=== PATIENT | male | born 1995 | race African-American/Black ===

== ENCOUNTER 2020-01-20 12:34 | Emergency (ER) | payer SELFPAY ==
[2020-01-20 12:44] VITALS: BP 147/87; PULSE 82; RESP 16; TEMP 37.1; O2SAT 100
--- NOTE | 2020-01-20 13:01 | ED.GENADULT ---
HPI - General Adult General Chief complaint: Recheck/Abnormal Lab/Rx Stated complaint: Blood Pressure Medicine Refill Time Seen by Provider: 01/20/20 12:54 Source: patient and RN notes reviewed Mode of arrival: ambulatory Limitations: no limitations History of Present Illness HPI narrative: Patient presents today requesting a refill on his amlodipine. He has been out for 10 to 12 days. He has a telehealth visit scheduled with his PCP on 01/28/2020. They will not refill his medication until that time. Denies any current symptoms such as headache, dizziness, lightheadedness, blurred vision, nausea or vomiting, or any additional sick symptoms. MD complaint: Medication refill Related Data Home Medications Medication Instructions Recorded Confirmed amlodipine 01/20/20 Allergies Allergy/AdvReac Type Severity Reaction Status Date / Time No Known Allergies Allergy Verified 01/20/20 13:04 Review of Systems Review of Systems: Narrative: CONSTITUTIONAL: Denies body aches, fever, chills, or sweats. EYES: Denies visual changes, redness, or discharge. ENT: Denies rhinorrhea, congestion, sore throat, or otalgia. CARDIOVASCULAR: Denies chest pain, palpitations, or edema. RESPIRATORY: Denies cough or dyspnea. GASTROINTESTINAL: Denies abdominal pain, nausea, vomiting, or diarrhea. GENITOURINARY: Denies dysuria or hematuria. SKIN: Denies rash, itching, or wounds. MUSCULOSKELETAL: Denies back pain, joint pain, or myalgia. NEUROLOGIC: Denies headache, numbness, tingling, or weakness. PSYCH: Denies depression or anxiety. [facility] Past Medical History Medical History (Updated 01/20/20 @ 13:04 by Patricia Castillo, [facility], ) Hypertension Comments At time of signature, I have reviewed and agree with nursing past medical, surgical, social and family history unless otherwise noted. Please see nursing chart for further information. There is no relevant family history pertinent to the presenting complaint Exam Narrative: Exam Narrative: GENERAL: Well-appearing, well-nourished, and in no acute distress. HEAD: Normocephalic, atraumatic. EYES: EOMI. No redness or drainage. Conjunctivae normal. ENT: Mucous membranes pink and moist. NECK: Normal AROM. CHEST: No respiratory distress. EXTREMITIES: Normal range of motion. No edema. SKIN: Warm, dry, no rash. Capillary refill normal. Normal skin turgor. NEURO: No focal deficits. Alert and oriented x3. Gait steady. PSYCH: Normal affect. No signs of depression or anxiety. Course Vital Signs Vital signs: Vital Signs Temperature 98.8 F 01/20/20 12:44 Pulse Rate 82 01/20/20 12:44 Respiratory Rate 16 01/20/20 12:44 Blood Pressure 147/87 H 01/20/20 12:44 Pulse Oximetry 100 01/20/20 12:44 Temperature 98.8 F 01/20/20 12:44 Pulse Rate 82 01/20/20 12:44 Respiratory Rate 16 01/20/20 12:44 Blood Pressure 147/87 H 01/20/20 12:44 Pulse Oximetry 100 01/20/20 12:44 Reviewed. Pt has been instructed to follow up with his PCP regarding his elevated blood pressure today. Medical Decision Making Differential Diagnosis Differential Diagnosis: Hypertension, hypertensive urgency, hypertensive emergency, medication refill Vital Signs Vital Signs: Vital Signs Temperature 98.8 F 01/20/20 12:44 Pulse Rate 82 01/20/20 12:44 Respiratory Rate 16 01/20/20 12:44 Blood Pressure 147/87 H 01/20/20 12:44 Pulse Oximetry 100 01/20/20 12:44 Temperature 98.8 F 01/20/20 12:44 Pulse Rate 82 01/20/20 12:44 Respiratory Rate 16 01/20/20 12:44 Blood Pressure 147/87 H 01/20/20 12:44 Pulse Oximetry 100 01/20/20 12:44 Critical Care Time Critical Care Time Critical Care Time: No Discharge Plan Discharge Clinical Impression: Encounter for medication refill Patient Disposition: Home, Self-Care Condition: Stable Instructions: Hypertension (ED) Additional Instructions: You have been given a 2-week refill of your amlodipine. P
== END 2020-01-20 13:06 | disposition home or self-care (01) ==
PROVIDERS: Emergency Provider Nurse Practitioner
DX: Z76.0 Encounter for issue of repeat prescription (principal)
CPT/HCPCS: 99201; 99203; G0463

== ENCOUNTER 2020-03-31 09:56 | Emergency (ER) | payer SELFPAY ==
[2020-03-31 10:03] VITALS: BP 143/90; PULSE 98; RESP 18; TEMP 36.5; O2SAT 100
--- NOTE | 2020-03-31 10:36 | ED.GENADULT ---
HPI - General Adult General Chief complaint: Eye Problems <Ian Smith PA-C - Last Filed: 03/31/20 10:44> Stated complaint: Eye Redness <RENETTA Garber Last Filed: 03/31/20 10:44> Time Seen by Provider: 03/31/20 10:06 <RENETTA Garber Last Filed: 03/31/20 10:44> Source: patient <RENETTA Garber Last Filed: 03/31/20 10:44> Mode of arrival: ambulatory <RENETTA Garber Last Filed: 03/31/20 10:44> Limitations: no limitations <RENETTA Garber Last Filed: 03/31/20 10:44> History of Present Illness HPI narrative: Patient reports her redness, drainage and itching to bilateral eyes. Patient states that it started in his right eye approximately 4 days ago the after 2 days went to his left eye as well. Patient denies any trauma to his eyes. He denies any changes in his vision or any pain. Patient states that he does not wear contact lenses. Patient states that when he sleeps and wakes up he wakes up and his eyes are crusted shut with thick yellow discharge and he has to use a warm washcloth to soften it and remove it to get it open. Patient denies any other symptoms or known sick contacts. Patient denies being ill recently <Ian Smith PA-C - Last Filed: 03/31/20 10:44> Related Data Allergies/adverse reactions: Allergies Allergy/AdvReac Type Severity Reaction Status Date / Time No Known Allergies Allergy Verified 03/31/20 10:07 <Ian Smith PA-C - Last Filed: 03/31/20 10:44> Review of Systems Review of Systems: Narrative: CONSTITUTIONAL: Denies fever, chills, or sweats. EYES: Reports redness and crusting with yellow discharge denies visual changes or ocular pain ENT: Denies rhinorrhea, congestion, sore throat, or otalgia. CARDIOVASCULAR: Denies chest pain, palpitations, or edema. RESPIRATORY: Denies cough or dyspnea. GASTROINTESTINAL: Denies abdominal pain, nausea, vomiting, or diarrhea. GENITOURINARY: Denies dysuria or hematuria. SKIN: Denies rash or itching. MUSCULOSKELETAL: Denies back pain, joint pain, or myalgia. NEUROLOGIC: Denies headache, numbness, dizziness, or weakness. PSYCHIATRIC: Denies anxiety or depression. <Ian Smith PA-C - Last Filed: 03/31/20 10:44> [facility] Past Medical History Medical History: Medical History (Updated 03/31/20 @ 10:40 by Ian Smith PA-C) Hypertension <Ian Smith PA-C - Last Filed: 03/31/20 10:44> Social History Social History: Social History Gender identity (if verbalized by the patient): Male <Ian Smith PA-C - Last Filed: 03/31/20 10:44> Exam Narrative: Exam Narrative: GENERAL: Well-appearing, well-nourished, and in no acute distress. HEAD: Normocephalic, atraumatic. EYES: Conjunctive are erythematous with yellow crust noted to patient's eyelashes. There is no subconjunctival hemorrhaging or other signs of trauma. Vision is intact. ENT: Nares clear, no rhinorrhea or epistaxis. Mucous membranes moist. Oropharynx without tonsillar hypertrophy exudate or other lesions. Bilateral TMs pearly holly nonbulging NECK: Supple. No adenopathy or masses. No carotid bruits or JVD CHEST: Clear to auscultation. No respiratory distress. No wheezes rales or rhonchi HEART: Regular rate and rhythm. No murmur heard. Normal peripheral pulses. ABDOMEN: Soft, nontender, nondistended, normal active bowel sounds. EXTREMITIES: Normal range of motion. No edema. SKIN: Warm, dry, no rash. NEURO: No focal deficits. Alert and oriented x3. PSYCH: Normal mood and affect. <Ian Smith PA-C - Last Filed: 03/31/20 10:44> Course Vital Signs Vital signs: Vital Signs Temperature 97.7 F 03/31/20 10:03 Pulse Rate 98 03/31/20 10:03 Respiratory Rate 18 03/31/20 10:03 Blood Pressure 143/90 H 03/31/20 10:03 Pulse Oximetry 100 03/31/20 10:03 Temperature 97.7 F 03/31/20 10:03 Pulse Rate 98 03/31/20 10:03 Respiratory Rate 18 03/31/20 10:03 Blood
== END 2020-03-31 10:56 | disposition home or self-care (01) ==
PROVIDERS: Emergency Provider General Practice
DX: H10.89 Other conjunctivitis (principal); I10 Essential (primary) hypertension
CPT/HCPCS: 99283

== ENCOUNTER 2020-09-06 10:30 | Emergency (ER) | payer OTHER, SELFPAY ==
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
[2020-09-06 11:21] VITALS: BP 122/77; PULSE 80; RESP 18; TEMP 36.5; O2SAT 97
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
[2020-09-06] MEDS: KETOROLAC (*BKC) 60 MG/2 ML VIAL IM (12:28)
[2020-09-06 13:00] VITALS: BP 136/88; PULSE 85; RESP 18; O2SAT 100
== END 2020-09-06 13:05 | disposition home or self-care (01) ==
PROVIDERS: Emergency Provider Emergency Medicine
DX: M54.5 Low back pain (principal); I10 Essential (primary) hypertension; V89.2XXA Person injured in unspecified motor-vehicle accident, traffic, initial encounter
CPT/HCPCS: 72110; 73502; 96372; 99284; J1885

== ENCOUNTER 2021-02-17 01:33 | Emergency (ER) | payer OTHER, SELFPAY ==
--- NOTE | ~2021-02-17 | XR_ITS ---
EXAMINATION: XR chest 1V portable DATE: 02/17/2021 02:42 INDICATION: Cough. Chest pain. TECHNIQUE: A single frontal view of the chest was obtained. COMPARISON: None. FINDINGS: The chest demonstrates clear lungs without pneumonia, pleural effusion, or pneumothorax. Th e heart size is normal. IMPRESSION: 1. No acute cardiopulmonary disease. Reviewed, dictated and finalized at location A. [employer]
[2021-02-17 01:38] VITALS: BP 127/68; PULSE 109; RESP 17; TEMP 36.6; O2SAT 97
--- NOTE | 2021-02-17 01:38 | ECG_ITS ---
Measurements Intervals [place] Rate: 102 P: 64 MD: 140 QRS: 47 QRSD: 85 T: 17 QT: 312 QTc: 407 Interpretive Statements SINUS TACHYCARDIA POSSIBLE LEFT ATRIAL ENLARGEMENT ST ELEVATION IN DIFFUSE LEADS- PROBABLY EARLY REPOLARIZATION ABNORMALITY BORDERLINE ECG Electronically Signed On 02-17-2021 17:18:36 [employer] by Kumar Jasmine D.O.
[2021-02-17 02:27] VITALS: BP 127/75; PULSE 105; RESP 18; O2SAT 98
--- NOTE | 2021-02-17 02:46 | ED.GENADULT ---
HPI - General Adult General Chief complaint: Headache Stated complaint: GARAY, chest discomfort, not feeling well. Time Seen by Provider: 02/17/21 02:27 History of Present Illness HPI narrative: Patient with 5-year-old gentleman who presents the emergency department chief complaint of headache body aches and generalized malaise. The patient states for the last several days has been feeling uncomfortable reports he has body aches reports he has a headache is been bothering him patient states is not improved by anything reports he has not been vaccinated for Covid the patient reports he has had a dry cough with this as well. Related Data Home Medications Medication Instructions Recorded Confirmed hydrochlorothiazide 09/06/20 ibuprofen 09/06/20 Allergies Allergy/AdvReac Type Severity Reaction Status Date / Time No Known Allergies Allergy Verified 02/17/21 02:28 Review of Systems Review of Systems: A 10 system review of systems was completed on the patient and is negative except for what is stated in the HPI. Nursing and ancillary documentation was reviewed. PMFSH Past Medical History Medical History Hypertension Social History Social History Substance use type: marijuana Gender identity (if verbalized by the patient): Male Exam Narrative: GENERAL: Well-appearing, well-nourished, and in no acute distress. HEAD: Normocephalic, atraumatic. EYES: PERRLA and EOMI. ENT: Nares clear, no rhinorrhea or epistaxis. Mucous membranes moist. NECK: Supple. CHEST: Clear to auscultation. No respiratory distress. HEART: Regular rate and rhythm. No murmur heard. Normal peripheral pulses. ABDOMEN: Soft, nontender, nondistended, normal active bowel sounds. EXTREMITIES: Normal range of motion. No edema. SKIN: Warm, dry, no rash. NEURO: No focal deficits. Alert and oriented x3. PSYCH: Normal mood and affect. Course Course Emergency Course: Chest x-ray shows no evidence of focal infiltrate Vital Signs Vital signs: Vital Signs Temperature 36.6 C 02/17/21 01:38 Pulse Rate 109 H 02/17/21 01:38 Respiratory Rate 17 02/17/21 01:38 Blood Pressure 127/68 02/17/21 01:38 Pulse Oximetry 97 02/17/21 01:38 Temperature 36.6 C 02/17/21 01:38 Pulse Rate 105 H 02/17/21 02:27 Respiratory Rate 18 02/17/21 02:27 Blood Pressure 127/75 02/17/21 02:27 Pulse Oximetry 98 02/17/21 02:27 Medical Decision Making Vital Signs Vital Signs: Vital Signs Temperature 36.6 C 02/17/21 01:38 Pulse Rate 109 H 02/17/21 01:38 Respiratory Rate 17 02/17/21 01:38 Blood Pressure 127/68 02/17/21 01:38 Pulse Oximetry 97 02/17/21 01:38 Temperature 36.6 C 02/17/21 01:38 Pulse Rate 105 H 02/17/21 02:27 Respiratory Rate 18 02/17/21 02:27 Blood Pressure 127/75 02/17/21 02:27 Pulse Oximetry 98 02/17/21 02:27 Lab Data Labs: Lab Results 02/17/21 Range/Units 03:24 SARS-CoV-2 RNA (RT-PCR) Pending Influenza A Screen Negative Reference Range: Negative Influenza B Screen Negative Reference Range: Negative Strep Screen Presumptive Negative *(Reference Range: Negative)* Discharge Plan Discharge Clinical Impression: Acute viral syndrome Patient Disposition: Home, Self-Care Condition: Stable Instructions: Antibiotic Form, Viral Syndrome (ED) Prescriptions: No Action ibuprofen 800 mg tablet RF: 0 hydrochlorothiazide 25 mg tablet RF: 0 cyclobenzaprine 10 mg tablet 10 mg PO TID PRN (Reason: muscle spasm) Qty: 14 RF: 0 ibuprofen [IBU] 600 mg tablet 600 mg PO QID PRN (Reason: fever or pain) Qty: 7 RF: 0 lidocaine 5 % adhesive patch,m
[2021-02-17] MEDS: PROCHLORPERAZINE EDISYLATE 10 MG/2 ML VIAL IV PUSH (03:27)
[2021-02-17] MEDS: SODIUM CHLORIDE 0.9% IV 1,000 ML 999 ML IV CONT (03:27)
[2021-02-17] MEDS: diphenhydrAMINE HCl INJ 50 MG/ML VIAL IV PUSH (03:28)
[2021-02-17 05:02] VITALS: BP 118/72; PULSE 116; RESP 18; O2SAT 99
[2021-02-18 19:31] LABS: SARS-CoV-2 RNA PCR Negative
== END 2021-02-17 05:05 | disposition home or self-care (01) ==
PROVIDERS: Emergency Provider Emergency Medicine
DX: Z20.822 Contact with and (suspected) exposure to COVID-19 (principal); B34.9 Viral infection, unspecified; I10 Essential (primary) hypertension
CPT/HCPCS: 71045; 87081; 87804; 87880; 93005; 96361; 96374; 96375; 99284; C9803; J0780; J1200; J7030; U0003; U0005

== ENCOUNTER 2022-08-17 12:40 | Emergency (ER) | payer OTHER, SELFPAY ==
[2022-08-17 12:57] VITALS: BP 131/78; PULSE 106; RESP 16; TEMP 36.6; O2SAT 97
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
[2022-08-17] MEDS: LIDO 1%/EPINEPHRINE 1:100,000 10 ML VIAL (13:51)
== END 2022-08-17 13:57 | disposition home or self-care (01) ==
PROVIDERS: Emergency Provider Emergency Medicine
DX: M79.5 Residual foreign body in soft tissue (principal)
CPT/HCPCS: 10120; 99282

== ENCOUNTER 2022-12-13 19:52 | Emergency (ER) | payer SELFPAY ==
[2022-12-13 19:56] VITALS: BP 133/94; PULSE 85; RESP 20; TEMP 36.5; O2SAT 99
[2022-12-13 20:47] VITALS: O2SAT 99
[2022-12-13 20:50] LABS: Influenza A QL RT-PCR Negative (Negative); Influenza B QL RT-PCR Negative (Negative); RSV RNA, RT-PCR Negative (Negative); SARS-CoV-2 RNA PCR Negative (Negative)
--- NOTE | 2022-12-13 20:50 | ED.URI ---
HPI - URI/Sore Throat General Chief Complaint: Upper Respiratory Infection Stated Complaint: not feeling well Lost sense of taste and smell. Time Seen by Provider: 12/13/22 20:40 Source: patient History of Present Illness HPI Narrative: 27 years old -[place] male presents to the ED with upper respiratory viral infection symptoms including sore throat, runny nose, nasal congestion, loss of taste and smell for the last 2 days. Patient works at [employer]. have similar symptoms started 3 days ago. Related Data Allergies Allergy/AdvReac Type Severity Reaction Status Date / Time No Known Allergies Allergy Verified 12/13/22 20:47 Review of Systems Review of Systems: All systems reviewed & are unremarkable except as noted in HPI and below PMFSH Past Medical History Medical History Hypertension Social History Social History Substance use type: marijuana Gender identity (if verbalized by the patient): Male Exam Narrative: General appearance: Well-developed, well-nourished Skin: Normal color Head: Normocephalic, nontraumatic Eyes: Clear conjunctiva ENT: Oropharyngeal erythema, runny nose Neck: Supple, nontender Chest and respiratory: Airway patent, no respiratory distress, no accessory muscle use Heart: Regular rate/rhythm Abdomen: Soft, nontender, no organomegaly, quiet bowel sounds Vascular: Normal peripheral pulses, normal capillary refill. Musculoskeletal: Normal range of motion, nontender back Neurologic: Alert and oriented ?3, [employer] is normal as tested, no gross motor deficit Course Vital Signs Vital signs: Vital Signs Temperature 36.5 C 12/13/22 19:56 Pulse Rate 85 12/13/22 19:56 Respiratory Rate 20 12/13/22 19:56 Blood Pressure 133/94 H 12/13/22 19:56 Pulse Oximetry 99 12/13/22 19:56 Oxygen Delivery Room Air 12/13/22 19:56 Temperature 36.5 C 12/13/22 19:56 Pulse Rate 85 12/13/22 19:56 Respiratory Rate 20 12/13/22 19:56 Blood Pressure 133/94 H 12/13/22 19:56 Pulse Oximetry 99 12/13/22 20:47 Oxygen Delivery Room Air 12/13/22 20:47 MDM - URI/Sore Throat MDM Narrative Medical decision making narrative: Patient is 27 years -[place] presents with upper respiratory viral infection symptoms, vitals are stable, afebrile, exam remarkable for the above, patient tested negative for COVID flu and RSV. Discharge home and Tylenol, ibuprofen and Atrovent nasal spray, excuse off work for the next 2 days. Differential Diagnosis Differential diagnosis: Likely upper respiratory infection and viral infection Lab Data Attestation: I reviewed the patient's lab results. Labs: Lab Results 12/13/22 Range/Units 19:59 Influenza A (RT-PCR) Negative (Negative) Influenza B (RT-PCR) Negative (Negative) RSV (RT-PCR) Negative (Negative) SARS-CoV-2 RNA (RT-PCR) Negative (Negative) Critical Care Time Critical Care Time Critical Care Time: No Discharge Plan Discharge Clinical Impression: Upper respiratory infection Qualifiers: URI type: unspecified URI Qualified Code(s): J06.9 - Acute upper respiratory infection, unspecified Patient Disposition: Home, Self-Care Condition: Stable Instructions: Upper Respiratory Infection (ED) Additional Instructions: Return if symptoms are worsening , call your family physician for appointment, take Tylenol as as needed for aches and pain, continue home medications. Take ibuprofen 600 every 6 hours as needed Prescriptions: New ipratropium bromide 42 mcg (0.06 %) spray,non-aerosol 2 spray intr
== END 2022-12-13 21:34 | disposition home or self-care (01) ==
LOC: ANHED 21:17
PROVIDERS: Emergency Medicine; Emergency Provider Emergency Medicine
DX: J06.9 Acute upper respiratory infection, unspecified (principal); Z20.822 Contact with and (suspected) exposure to COVID-19; I10 Essential (primary) hypertension
CPT/HCPCS: 87637; 99283

== ENCOUNTER 2023-01-28 13:53 | Emergency (ER) | payer SELFPAY ==
[2023-01-28 14:01] VITALS: BP 133/68; PULSE 89; RESP 18; TEMP 36.3; O2SAT 100
--- NOTE | 2023-01-28 16:30 | PC.NURSE ---
Pt not present when name called in waiting room.
== END 2023-01-28 16:30 | disposition left against medical advice (07) ==
LOC: ANHED 16:41
DX: R04.0 Epistaxis (principal)
CPT/HCPCS: 99199

== ENCOUNTER 2024-07-28 16:06 | Emergency (ER) | payer OTHER, SELFPAY ==
--- NOTE | ~2024-07-28 | XR_ITS ---
HISTORY: injurY COMPARISON: None TECHNIQUE: 3 views of the right ankle were performed FINDINGS: No acute fracture or dislocation. Moderate soft tissue swelling of the hindfoot. A 2.7 mm linear radiopaque density is identified within the superficial soft tissues of the hindfoot, just superficial to the plantar fascia The ankle mortise is preserved. Bone mineralization is age-appropriate. IMPRESSION: Radiopaque foreign body within the superficial soft tissues of the hindfoot, as detailed above. No acute fracture or dislocation is appreciated. Reviewed, dictated and finalized at location A.
--- NOTE | ~2024-07-28 | XR_ITS ---
EXAMINATION: XR foot RT min 3V DATE: 07/28/2024 16:46 INDICATION: Right foot pain post injury TECHNIQUE: Dorsoplantar, two oblique and lateral views of the right foot were obtained. COMPARISON: None. FINDINGS: The right second toe as clawed. Bone alignment is otherwise normal. No fracture. Joint spaces are nor mal. No erosions. 2-3 mm thin wire-like metallic foreign body in the soft tissues plantar to the mid to anterior calcaneus. IMPRESSION: 1. 2-3 mm thin wire-like metallic foreign body in the soft tissues plantar to the mid to anterior andreas caneus. 2. No acute osseous abnormality. Reviewed, dictated and finalized at location A. IMPRESSION: 1. 2-3 mm thin wire-like metallic foreign body in the soft tissues plantar to t he mid to anterior calcaneus. 2. No acute osseous abnormality.
--- OUTSIDE RECORDS SUMMARY | 2024-07-28 16:08 | XMS_ITS | Referral Summary ---
Author Organization [facility] Address [address] [place] [address] Care Team Providers Care Attic Fans Mechanic Name Role Phone No, Physician Primary Care Provider [phone] Allergies No known active allergies Medications amLODIPine (NORVASC) 5 mg tablet Take 5 mg by mouth daily Active acetaminophen (TYLENOL) 500 mg tablet Take 2 tablets (1,000 mg total) by mouth every 6 (six) hours as needed for pain (1 tablet for mild to moderate pain. 2 tablets for severe pain) 30 tablet 06/06/2022 Active ibuprofen (ADVIL,MOTRIN) 600 mg tabletIndicatio ns:Anti-inflamm atory Take 1 tablet (600 mg total) by mouth every 8 (eight) hours as needed for pain 30 tablet 06/06/2022 Active Social History Tobacco Use Types Packs/Day Years Used Date Smoking Tobacco: Former Smokeless Tobacco: Never Alcohol Use Standard Drinks/Week Comments Never 0 (1 standard drink = 0.6 oz pur e alcohol) AUDIT-C Answer Date Recorded Frequency of Alcohol Consumption Never 03/07/2019 Average Number of Drinks Not on file 020 Frequency of Binge Drinking Not on file 08/2019 Personal Safety Answer Date Recorded Getting School Help Needed Not on file 06/20 Sex and Gender Information Value Date Recorded Sex Assigned at Not on file 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 Gender Identity Not on file Sexual Orientation Not on file Last Filed Vital Signs Vital Sign Reading Time Taken Comments Blood Pressure 143/80 06/06/2022 10:37 AM CDT Pulse 74 06/06/2022 1:17 PM CDT Temperature 36.7 C (98 F) 06/06/2022 10:37 AM CDT Respiratory Rate 18 06/06/2022 1:17 PM CDT Oxygen Saturation 96% 06/06/2022 10:37 AM CDT Inhaled Oxygen Concentration - - Weight 83.9 kg (185 lb) 06/06/2022 10:32 AM CDT Height 177.8 cm (5' 10) 06/06/2022 10:32 AM CDT Body Mass Index 26.54 06/06/2022 10:32 AM CDT Plan of Treatment Not on file Insurance Care Teams Attic Fans Mechanic Relationship Specialty Start Date End Date No, Physician PCP - General 06/06/22
--- OUTSIDE RECORDS SUMMARY | 2024-07-28 16:08 | XMS_ITS | Clinical Summary ---
Author Organization [facility] Care Team Providers Care Commercial Real Estate Assistant Name Role Phone Unavailable Primary Care Provider Unavailabl e Social History Tobacco Use Types Packs/Day Years Used Date Smoking Tobacco: Never Assessed Sex and Gender Information Value Date Recorded Sex Assigned at Not on file Legal Sex Male 12:13 PM CDT Gender Identity Not on file Sexual Orientation Not on file Plan of Treatment Health Maintenance Due Date Last Done Comments Hepatitis C Virus (HCV) Screening 1994 TdaP Immunization 1994 Influenza Immunization (#1) 2023 SARS-COV-2 Immunization ( season) 2023 Respiratory Syncytial Virus (RSV) Immunization (Adult) (1 - 1-dose 75+ series) 2069 Hepatitis B Immunization Completed 996, 1994, 1994 DTaP/Tdap/Td Immunization Discontinued 1999, 11/23/1998, 01/05/1996, Additional history exists Meningococcal Immunization (ACWY) Aged Out 10/17/2008 No longer eligible based on patient's age to complete this topic Pneumococcal Immunization Combined Aged Out No longer eligible based on patient's age to complete this topic Rotavirus Immunization Aged Out No lo nger eligible based on patient's age to complete this topic
--- OUTSIDE RECORDS SUMMARY | 2024-07-28 16:08 | XMS_ITS | Clinical Summary ---
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 Gender Identity Not on file Sexual Orientation Not on file Obstetrics History Last Filed Vital Signs Vital Sign Reading [...] 06/06/2022 10:32 AM CDT Plan of Treatment Health Maintenance Due Date Last Done Comments Depression Screening 1994 Hepatitis C Screening 1994 DTaP/Tdap/Td Vaccine (6 - Tdap) 2005 11/18/1999, 11/23/1998, 01/05/1996, Additional history exists Varicella Vaccines (1 of 2 - 13+ 2-dose series) 06/13/2007 Regular Well Visit/Exam 18-64 2012 Influenza Vaccine (Season Ended) 2024 11/30/2016 Hepatitis B Screening Completed 01/05/1996 , 1994, 1994 HPV Vaccines Aged Out No longer eligi ble based on patient's age to complete this topic Pneumococcal vaccine <65 Aged Out No longer eligible based on patient's age to complete this topic [place] [address] Care Teams Label Tacker Relationship Specialty Start Date End Date No, Physician PCP - General 06/06/22
--- OUTSIDE RECORDS SUMMARY | 2024-07-28 16:08 | XMS_ITS | Encounter Summary ---
Author Organization [facility] Address [address] [place] [address] Phone Care Team Providers Care Food Beverage Manager Name Role Phone Clinic, Primary Care Medicine MD Primary Care Pr ovider Unavailable Clinic, Medicine X. 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 Gender Identity Not on file Sexual Orientation Not on file documented as of this encounter Plan of Treatment Not on file documented as of this encounter Procedures Procedure Name Priority Date/Time Associated Diagnosis Comments VASCULAR LABORATORY REPORT 01/21/2017 7:35 PM CAFETERIA AIDE VASCULAR LABORATORY REPORT 01/21/2017 7:34 PM CAFETERIA AIDE documented in this encounter Results * VASCULAR LABORATORY REPORT (01/21/2017 7:35 PM CAFETERIA AIDE) Anatomical Region Laterality Modality Ultrasound us Provider Scanning CV VASCULAR PROCEDURES Final R esult * VASCULAR LABORATORY REPORT (01/21/2017 7:34 PM CAFETERIA AIDE) Anatomical Region Laterality Modality Ultrasound us Provider Scanning CV VASCULAR PROCEDURES Final R esult documented in this encounter Visit Diagnoses Not on filedocumented in this encounter Care Teams Food Beverage Manager Relationship Specialty Start Date End Date Clinic, Primary Care Medicine, PCP - General 01/17/17 01/23/17 [facility], Medicine [address]. [address] [place] [address] PCP - General 01/24/17 06/05/22 No, Physician PCP - General 06/06/22 documented as of this encounter
[2024-07-28 16:24] VITALS: BP 134/74; PULSE 77; RESP 20; TEMP 36.2; O2SAT 100
--- NOTE | 2024-07-28 16:37 | ED_ITS ---
HPI - Extremity Injury (Lower) General Chief Complaint: Extremity Injury, Lower <RENETTA Patel Last Filed: 07/29/24 11:01> Stated Complaint: right ankle injury <RENETTA Patel Last Filed: 07/29/24 11:01> Time Seen by Provider: 07/28/24 16:37 <RENETTA Patel Last Filed: 07/29/24 11:01> Focused HPI: This is a 29 year old male that presents to the ER for right foot/ankle injury sustained just prior to arrival. Reports he stepped down out of a 15 passenger van wrong. [place] a pop. Reports pain, unable to ambulate since. Denies numbness. GENERAL: Uncomfortable, well-nourished, and in no acute distress. HEAD: Normocephalic, atraumatic. CHEST: Clear to auscultation. ?No respiratory distress. HEART: Regular rate and rhythm.? NEURO: ?Alert and oriented x3. Patient screened in triage and initial orders placed.? ?Additional care and disposition to be based upon?diagnostic testing and treatment. <RENETTA Patel Last Filed: 07/29/24 11:01> Focused HPI: This is a 29 year old male that presents to the ER for right foot/ankle injury sustained just prior to arrival. Reports he stepped down out of a 15 passenger van wrong. [place] a pop. Reports pain, unable to ambulate since. Denies numbness. GENERAL: Uncomfortable, well-nourished, and in no acute distress. HEAD: Normocephalic, atraumatic. CHEST: Clear to auscultation. ?No respiratory distress. HEART: Regular rate and rhythm.? NEURO: ?Alert and oriented x3. Patient screened in triage and initial orders placed.? ?Additional care and disposition to be based upon?diagnostic testing and treatment. <RENETTA Beaulieu Last Filed: 07/28/24 20:13> Source: patient <RENETTA Beaulieu Last Filed: 07/28/24 20:13> Mode of arrival: ambulatory <RENETTA Beaulieu Last Filed: 07/28/24 20:13> Limitations: no limitations <Isamar Lawrence PA-C - Last Filed: 07/28/24 20:13> History of Present Illness HPI Narrative: Agree with above HPI. <Isamar Lawrence PA-C - Last Filed: 07/28/24 20:13> Related Data Allergies/Adverse Reactions: Allergies Allergy/AdvReac Type Severity Reaction Status Date / Time No Known Allergies Allergy Verified 01/28/23 13:53 <Sully Ariza PA-C - Last Filed: 07/29/24 11:01> Review of Systems Review of Systems: All systems reviewed & are unremarkable except as noted in HPI. <Isamar Lawrence PA-C - Last Filed: 07/28/24 20:13> All systems reviewed & are unremarkable except as noted in HPI and below <Isamar Lawrence PA-C - Last Filed: 07/28/24 20:13> PMFSH Past Medical History Medical History: Medical History Hypertension <Sully Ariza PA-C - Last Filed: 07/29/24 11:01> Social History Social History: Social History Substance use type: marijuana Gender identity (if verbalized by the patient): Male <Sully Ariza PA-C - Last Filed: 07/29/24 11:01> Exam Narrative: GENERAL: Well appearing, well-nourished, non-toxic, in no acute distress. HEAD: Normocephalic, atraumatic. RESPIRATORY: Airway patent, respirations nonlabored. CARDIOVASCULAR: Regular rate and rhythm. Pedal pulses intact. MUSCULOSKELETAL: Moves all extremities. Mild swelling throughout anterior lateral right dorsal foot/ankle. Focal tenderness to palpation in this area. No significant focal tenderness over medial or lateral malleoli. Sensation intact throughout foot and ankle. Capillary refill intact. No obvious foreign body. SKIN: Warm, dry, normal color. NEURO: A&O X3. Speech clear. No ataxic movements. PSYCHIATRIC: Appropriate mood and affect. Normal interaction. <RENETTA Beaulieu Last Filed: 07/28/24 20:13> Course Vital Signs Vital signs: Vital Signs Temperature 97.1 F L 07/28/24 16:24 Pulse Rate 77 07/28/24 16:24 Respiratory Rate 20 07/28/24 16:24 Blood Pressure 134/74 07/28/24 16:24 Pulse Oximetry 100 07/28/24 16:24 Temperature 97.1 F L 07/28/24 16:24 Pulse Rate 77 07/28/24 16:24 Respiratory Rate 20 07/28/24 16:24 Blood Pressure 134/74 07/28/24 16:24 Pulse Oximetry 100 07/28/24 16:24 <RENETTA Patel Last Filed: 07/29/24 11:01> Vital Signs Temperature 97.1 F L 07/28/24 16:24 Pulse Rate 77 07/28/24 16:24 Respiratory Rate 20 07/28/24 16:24 Blood Pressure 134/74 07/28/24 16:24 Pulse Oximetry 100 07/28/24 16:24 Temperature 97.1 F L 07/28/24 16:24 Pulse Rate 77 07/28/24 16:24 Respiratory Rate 20 07/28/24 16:24 Blood Pressure 134/74 07/28/24 16:24 Pulse Oximetry 100 07/28/24 16:24 <Isamar Lawrence PA-C - Last Filed: 07/28/24 20:13> MDM - Extremity Injury (Lower) MDM Narrative Medical decision making narrative: Patient?s injury is consistent with musculoskeletal etiology. No signs of neurologic or vascular compromise on physical examination. Compartments are soft without signs of compartment syndrome. XR of right ankle and foot negative for fracture. Does show middle like foreign body to plantar surface of foot. Pain is consistent with ankle sprain. No obvious foreign body on exam. Discussed this with patient. Discussed follow-up with podiatry for further evaluation and potential removal although it does not seem to be causing patient any problems at this time and is very small. No signs of infection or cellulitis on exam. Patient placed in Rahul bandage, given crutches for assistance with ambulation. Discussed rice therapy, will also refer to orthopedics for further evaluation if needed. Given return precautions. Discharged in stable condition. <Isamar Lawrence PA-C - Last Filed: 07/28/24 20:13> Medical Records Attestation: I reviewed the patient's medical records. <RENETTA Beaulieu Last Filed: 07/28/24 20:13> Imaging Data Attestation: I personally reviewed and interpreted this imaging study as follows: <Isamar Lawrence PA-C - Last Filed: 07/28/24 20:13> Radiologist's impression: ITS Impressions Ankle X-Ray 07/28/24 16:27 IMPRESSION: Radiopaque foreign body within the superficial soft tissues of the hindfoot, as detailed above. No acute fracture or dislocation is appreciated. Foot X-Ray 07/28/24 16:57 IMPRESSION: 1. 2-3 mm thin wire-like metallic foreign body in the soft tissues plantar to the mid to anterior calcaneus. 2. No acute osseous abnormality. <Isamar Lawrence PA-C - Last Filed: 07/28/24 20:13> Critical Care Time Critical Care Time Critical Care Time: No <RENETTA Patel Last Filed: 07/29/24 11:01> Discharge Plan Discharge Clinical Impression: Ankle sprain and strain Foreign body in right foot Qualifiers: Encounter type: initial encounter Qualified Code(s): S90.851A - Superficial foreign body, right foot, initial encounter <Sully Ariza PA-C - Last Filed: 07/29/24 11:01> Patient Disposition: Home <RENETTA Patel Last Filed: 07/29/24 11:01> Condition: Stable <RENETTA Patel Last Filed: 07/29/24 11:01> Instructions: Antibiotic Form, Ankle Sprain (ED), Soft Tissue Foreign Body (ED), P.R.I.C.E. Treatment (ED) <RENETTA Patel Last Filed: 07/29/24 11:01> Additional Instructions: Your x-ray did not show any evidence of fracture. You likely sprained your ankle. Utilize Rahul bandage for compression and support. Recommend frequent elevation of right foot/leg, frequent icing to ankle. Continue Tylenol and Ibuprofen as needed for pain. Utilize crutches for assistance with walking. Follow-up with orthopedics for further evaluation if needed. Your x-rays did show a small metal-like foreign body in your right foot. Follow-up with podiatry for this. Return to the ED if you experience worsening or severe pain, recurrent injury, numbness, or any other symptoms of concern. <Sully Ariza PA-C - Last Filed: 07/29/24 11:01> Patient Language: Occitan <Sully Ariza PA-C - Last Filed: 07/29/24 11:01> Prescriptions: No Action ipratropium bromide 42 mcg (0.06 %) spray,non-aerosol 2 spray intranasal QID 7 Days Qty: 15 0RF Rx Instructions: administer into each nostril <Sully Ariza PA-C - Last Filed: 07/29/24 11:01> Follow-up/Referrals: Yonatan Beebe MD [Physician] - (ORTHOPEDICS) Bakari Morrison Jr., DPM [Physician] - (PODIATRY) UNKNOWN,DOCTOR [Primary Care Provider] - <Sully Ariza PA-C - Last Filed: 07/29/24 11:01> Time of Disposition: 20:09 <RENETTA Patel Last Filed: 07/29/24 11:01> 20:09 <Isamar Lawrence PA-C - Last Filed: 07/28/24 20:13>
[2024-07-28] MEDS: HYDROcodone/acetaminophen (*CRX) 5-325 MG TABLET 1 TAB PO (16:38)
--- OUTSIDE RECORDS SUMMARY | 2024-07-28 19:48 | XMS_ITS | Clinical Summary ---
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
--- OUTSIDE RECORDS SUMMARY | 2024-07-28 19:48 | XMS_ITS | Clinical Summary ---
Author Organization [facility] Care Team Providers Care Pressurised Container Filler Name Role Phone Unavailable Primary Care Provider [...]
--- OUTSIDE RECORDS SUMMARY | 2024-07-28 19:48 | XMS_ITS | Referral Summary ---
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
--- OUTSIDE RECORDS SUMMARY | 2024-07-28 19:48 | XMS_ITS | Encounter Summary ---
Author Organization [facility] Address [address] [place] [address] Phone Care Team Providers Care It Systems Engineer Name Role Phone Clinic, Primary Care Medicine MD Primary Care Pr ovider Unavailable Clinic, Medicine X. 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 Gender Identity Not on file Sexual Orientation Not on file documented as of this encounter Plan of Treatment Not on file documented as of this encounter Procedures Procedure Name Priority Date/Time Associated Diagnosis Comments VASCULAR LABORATORY REPORT 01/21/2017 7:35 PM ORACLE MANAGER VASCULAR LABORATORY REPORT 01/21/2017 7:34 PM ORACLE MANAGER documented in this encounter Results * VASCULAR LABORATORY REPORT (01/21/2017 7:35 PM ORACLE MANAGER) Anatomical Region Laterality Modality Ultrasound us Provider Scanning CV VASCULAR PROCEDURES Final R esult * VASCULAR LABORATORY REPORT (01/21/2017 7:34 PM ORACLE MANAGER) Anatomical Region Laterality Modality Ultrasound us Provider Scanning CV VASCULAR PROCEDURES Final R esult documented in this encounter Visit Diagnoses Not on filedocumented in this encounter Care Teams It Systems Engineer Relationship Specialty Start Date End Date Clinic, Primary Care Medicine, PCP - General 01/17/17 01/23/17 [facility], Medicine [address]. [address] [place] [address] PCP - General 01/24/17 06/05/22 No, Physician PCP - General 06/06/22 documented as of this encounter
== END 2024-07-28 20:22 | disposition home or self-care (01) ==
PROVIDERS: Emergency Provider Physician Assistant
DX: S93.401A Sprain of unspecified ligament of right ankle, initial encounter (principal); S96.911A Strain of unspecified muscle and tendon at ankle and foot level, right foot, initial encounter; M79.5 Residual foreign body in soft tissue; I10 Essential (primary) hypertension; X50.9XXA Other and unspecified overexertion or strenuous movements or postures, initial encounter
CPT/HCPCS: 73610; 73630; 99283; A9270

== ENCOUNTER 2024-08-15 06:52 | Emergency (ER) | payer OTHER, SELFPAY ==
--- OUTSIDE RECORDS SUMMARY | 2024-08-15 06:54 | XMS_ITS | Clinical Summary ---
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
--- OUTSIDE RECORDS SUMMARY | 2024-08-15 06:54 | XMS_ITS | Referral Summary ---
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
--- OUTSIDE RECORDS SUMMARY | 2024-08-15 06:54 | XMS_ITS | Clinical Summary ---
Author Organization [facility] Care Team Providers Care Price Changer Name Role Phone Unavailable Primary Care Provider [...]
--- OUTSIDE RECORDS SUMMARY | 2024-08-15 06:54 | XMS_ITS | Encounter Summary ---
Author Organization [facility] Address [address] [place] [address] Phone Care Team Providers Care Ceramic Engineering Professor Name Role Phone Clinic, Primary Care Medicine MD Primary Care Pr ovider Unavailable Clinic, Medicine X. 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 Gender Identity Not on file Sexual Orientation Not on file documented as of this encounter Plan of Treatment Not on file documented as of this encounter Procedures Procedure Name Priority Date/Time Associated Diagnosis Comments VASCULAR LABORATORY REPORT 01/21/2017 7:35 PM CIVIL ENGINEER'S AIDE VASCULAR LABORATORY REPORT 01/21/2017 7:34 PM CIVIL ENGINEER'S AIDE documented in this encounter Results * VASCULAR LABORATORY REPORT (01/21/2017 7:35 PM CIVIL ENGINEER'S AIDE) Anatomical Region Laterality Modality Ultrasound us Provider Scanning CV VASCULAR PROCEDURES Final R esult * VASCULAR LABORATORY REPORT (01/21/2017 7:34 PM CIVIL ENGINEER'S AIDE) Anatomical Region Laterality Modality Ultrasound us Provider Scanning CV VASCULAR PROCEDURES Final R esult documented in this encounter Visit Diagnoses Not on filedocumented in this encounter Care Teams Ceramic Engineering Professor Relationship Specialty Start Date End Date Clinic, Primary Care Medicine, PCP - General 01/17/17 01/23/17 [facility], Medicine [address]. [address] [place] [address] PCP - General 01/24/17 06/05/22 No, Physician PCP - General 06/06/22 documented as of this encounter
[2024-08-15 06:55] VITALS: BP 142/98; PULSE 77; RESP 18; TEMP 36.9; O2SAT 99
--- NOTE | 2024-08-15 07:00 | ED_ITS ---
HPI - General Adult General Chief complaint: Unspecified Stated complaint: work note Time Seen by Provider: 08/15/24 06:55 History of Present Illness HPI narrative: 29-year-old male present to the emergency department for request to go back to work. Patient states he was here last week and did have a sprained right ankle. Patient states that ankle has since improved and he wanted to go back to work but were told that he needed a note to return to work. Patient was able to ambulate it is baseline denies any current pain or injury. Related Data Allergies Allergy/AdvReac Type Severity Reaction Status Date / Time No Known Allergies Allergy Verified 08/15/24 06:57 Review of Systems Review of Systems: All systems reviewed & are unremarkable except as noted in HPI and below PMFSH Past Medical History Medical History Hypertension Social History Social History Substance use type: marijuana Gender identity (if verbalized by the patient): Male Exam Narrative: APPEARANCE: Well appearing, no pain, no distress, well-nourished. HEAD: normocephalic, atraumatic. EYES: PERRLA/EOMI, conjunctivae clear. NOSE: Normal no drainage EARS:TMS clear with good light reflex. THROAT: Pharynx clear, no exudate. NECK: Supple. No adenopathy, no masses. RESPIRATORY: Airway patent, respirations nonlabored. Clear to auscultation b ilaterally, no rales, rhonchi, wheezing. CARDIOVASCULAR: Regular rate and rhythm without murmurs rubs or gallops. ABDOMINAL: Soft, nontender, nondistended, normal bowel sounds MUSCULOSKELETAL: Moves all extremities. Strength/ROM intact, No edema, No calf tenderness. NEURO: Alert. Cranial nerves II through XII intact. Good gait. Good coordination SKIN: Warm, dry. Normal Color Course Vital Signs Vital signs: Vital Signs Temperature 98.5 F 08/15/24 06:55 Pulse Rate 77 08/15/24 06:55 Respiratory Rate 18 08/15/24 06:55 Blood Pressure 142/98 H 08/15/24 06:55 Pulse Oximetry 99 08/15/24 06:55 Oxygen Delivery Room Air 08/15/24 06:55 Temperature 98.5 F 08/15/24 06:55 Pulse Rate 77 08/15/24 06:55 Respiratory Rate 18 08/15/24 06:55 Blood Pressure 142/98 H 08/15/24 06:55 Pulse Oximetry 99 08/15/24 06:55 Oxygen Delivery Room Air 08/15/24 06:55 Medical Decision Making MDM Narrative Medical decision making narrative: 29-year-old male present to the ED for request for a work note to return to work. Vital Signs Vital Signs: Vital Signs Temperature 98.5 F 08/15/24 06:55 Pulse Rate 77 08/15/24 06:55 Respiratory Rate 18 08/15/24 06:55 Blood Pressure 142/98 H 08/15/24 06:55 Pulse Oximetry 99 08/15/24 06:55 Oxygen Delivery Room Air 08/15/24 06:55 Temperature 98.5 F 08/15/24 06:55 Pulse Rate 77 08/15/24 06:55 Respiratory Rate 18 08/15/24 06:55 Blood Pressure 142/98 H 08/15/24 06:55 Pulse Oximetry 99 08/15/24 06:55 Oxygen Delivery Room Air 08/15/24 06:55 Discharge Plan Discharge Clinical Impression: Ankle injury Patient Disposition: Home Condition: Stable Instructions: Antibiotic Form Additional Instructions: You are cleared to return to work. Patient Language: Bulgarian Prescriptions: No Action ipratropium bromide 42 mcg (0.06 %) spray,non-aerosol 2 spray intranasal QID 7 Days Qty: 15 0RF Rx Instructions: administer into each nostril Follow-up/Referrals: UNKNOWN,DOCTOR [Non-Staff] - Stand Alone Forms: Work/School Release IP
== END 2024-08-15 07:10 | disposition home or self-care (01) ==
PROVIDERS: Emergency Provider Emergency Medicine
DX: S93.401D Sprain of unspecified ligament of right ankle, subsequent encounter (principal); X58.XXXD Exposure to other specified factors, subsequent encounter
CPT/HCPCS: 99282